=== PATIENT | female | born 1980 | race Hispanic/Latino ===

== ENCOUNTER 2018-08-11 17:32 | Emergency (ER) | payer SELFPAY ==
[~2018-08-11] VITALS: Ht 162.6 cm; Wt 49.9 kg
[2018-08-11 20:23] VITALS: BP 127/60
== END 2018-08-11 20:15 | disposition home or self-care (01) ==
LOC: ER 17:32
DX: L50.1 Idiopathic urticaria (principal); L24.9 Irritant contact dermatitis, unspecified cause
CPT/HCPCS: 99282

== ENCOUNTER 2023-10-19 22:21 | Emergency (ER) | payer SELFPAY ==
[~2023-10-19] VITALS: Ht 162.6 cm; Wt 49.9 kg
[2023-10-19 23:28] VITALS: PULSE 75; RESP 18; TEMP 98.3; O2SAT 100
== END 2023-10-19 23:30 | disposition home or self-care (01) ==
LOC: ER 22:23
DX: S70.361A Insect bite (nonvenomous), right thigh, initial encounter (principal)
CPT/HCPCS: 99282